=== PATIENT | female | born 1960 | race Caucasian/White ===

== ENCOUNTER 2021-04-22 01:52 | Inpatient (IN) | payer OTHER ==
[2021-04-22 02:05] VITALS: BMI 20.1
[2021-04-22] MEDS ORDERED: ACETAMINOPHEN 1000 MG/100 ML VIAL (NON FORMULARY) IVPB ONE (02:49)
[2021-04-22] MEDS ORDERED: ACETAMINOPHEN INJECTION 100 ML IVPB ONE (02:51)
[2021-04-22 02:55] LABS: BASO % 1.2 % (0-2.0); EOS % 2.8 % (0-4.5); HEMATOCRIT 39.9 % (32.4-45.2); HEMOGLOBIN 14.1 GM/dL (10.7-15.3); LYMPH % 41.6 % (8-40); MCH 35.3 pg (25.7-33.7); MCHC 35.3 g/dl (32.0-36.0); MEAN CELL VOLUME 100.3 fl (80-96); MEAN PLT VOLUME 6.8 fl (7.5-11.1); MONO % 7.1 % (3.8-10.2); NEUT % 47.3 % (42.8-82.8); PLATELET COUNT 282 K/MM3 (134-434); RBC 3.98 M/mm3 (3.60-5.2); WHITE BLOOD COUNT 7.6 K/mm3 (4.0-10.0)
[2021-04-22] MEDS ORDERED: LORazepam 2 MG/ML SDV VIAL IVPUSH ONE (02:55)
[2021-04-22] MEDS ORDERED: ONDANSETRON 4 MG/2 ML VIAL IVPUSH ONE (02:55)
[2021-04-22 03:03] LABS: INR 1.05 (0.83-1.09); PROTHROMBIN TIME (PATIENT) 12.9 SEC (9.7-13.0)
[2021-04-22 03:06] LABS: ACTIVATED PTT 27.6 SECONDS (25.2-36.5)
[2021-04-22 03:16] LABS: CHLORIDE 105 mmol/L (98-107); SODIUM 141 mmol/L (136-145)
[2021-04-22 03:18] LABS: CALCIUM 9.7 mg/dL (8.5-10.1)
[2021-04-22] MEDS ORDERED: LORazepam 2 MG/ML SDV VIAL ONE (03:18)
[2021-04-22] MEDS ORDERED: ONDANSETRON 4 MG/2 ML VIAL ONE (03:18)
[2021-04-22 03:19] LABS: ALBUMIN 3.6 g/dl (3.4-5.0); ANION GAP 11 MMOL/L (8-16); BLOOD UREA NITROGEN 8.1 mg/dL (7-18); CO2 25 mmol/L (21-32); GLUCOSE,RANDOM 85 mg/dL (74-106); LIPASE 66 U/L (73-393)
[2021-04-22] MEDS ORDERED: POTASSIUM CHLORIDE TABS 20 MEQ TABLET.ER (FP) PO ONE (03:19)
[2021-04-22 03:22] LABS: CREATININE 0.5 mg/dL (0.55-1.3); SGOT/AST 13 U/L (15-37); SGPT/ALT 15 U/L (13-61)
[2021-04-22 03:23] LABS: BILIRUBIN,TOTAL 0.5 mg/dL (0.2-1); TOT PROT 6.2 g/dl (6.4-8.2)
[2021-04-22 03:24] LABS: ALK PHOS 65 U/L (45-117)
[2021-04-22] MEDS ORDERED: POTASSIUM CHLORIDE ORAL LIQUID 20 MEQ/15 ML ONE (04:24)
[2021-04-22] MEDS ORDERED: AZITHROMYCIN 250 MG TABLET PO ONE (04:44)
[2021-04-22] MEDS ORDERED: PIPERACILLIN/TAZOB 4.5 GM 4.5 GM in DEXTROSE 5%-WATER 100 ML IVPB ONE (04:47)
[2021-04-22] MEDS ORDERED: PIPERACILLIN/TAZOB 4.5 GM 4.5 GM/100 ML BAG IVPB ONE (05:06)
[2021-04-22] MEDS ORDERED: SODIUM CHLORIDE 1,000 ML IV SCH (09:45)
[2021-04-22] MEDS ORDERED: ACETAMINOPHEN 325 MG TABLET (FP) PO PRN (09:45)
[2021-04-22] MEDS ORDERED: ONDANSETRON 4 MG/2 ML VIAL IVPUSH PRN ×2 (10:00→20:29)
[2021-04-22] MEDS ORDERED: ENOXAPARIN NA (PORCINE) 60 MG/0.6 ML DISP.SYRIN SQ SCH (10:00)
[2021-04-22] MEDS ORDERED: VANCOMYCIN 1 GM in D5W (PRE-DOCKED) 1,000 MG/250 ML IVPB SCH ×2 (11:00→22:00)
[2021-04-22] MEDS ORDERED: PIPERACILLIN/TAZOB 3.375 GM 3.375 GM in DEXTROSE 5%-WATER - 50 ML IVPB SCH ×2 (11:00→18:00)
[2021-04-22] MEDS ORDERED: MELATONIN 5 MG TABLETS PO PRN (11:01)
[2021-04-22] MEDS ORDERED: PIPERACILLIN/TAZOBACTAM 3.375 GM VIAL IVPB ONE ×2 (11:34→17:28)
[2021-04-22] MEDS ORDERED: DEXTROSE 5%-WATER - 50 ML IVPB ONE ×2 (11:34→17:28)
[2021-04-22] MEDS ORDERED: CEFTRIAXONE 1 GM in DEXTROSE 5%-WATER - 50 ML IVPB ONE (14:00)
[2021-04-22] MEDS ORDERED: ALPRAZolam 0.25 MG TABLET PO PRN ×2 (16:47→20:29)
[2021-04-22] MEDS ORDERED: PT OWN MED DRAWER 7, Y5N ONE ×2 (17:45→21:48)
[2021-04-22 18:20] LABS: PH,URINE 6.5 (5.0-8.0); URINE APPEARANCE CLEAR; URINE BILIRUBIN NEGATIVE (NEGATIVE); URINE COLOR YELLOW; URINE GLUCOSE (UA) TRACE (NEGATIVE); URINE KETONE 1+ (NEGATIVE); URINE LEUK ESTERASE NEGATIVE (NEGATIVE); URINE NITRITE NEGATIVE (NEGATIVE); URINE PROTEIN NEGATIVE (NEGATIVE); URINE UROBILINOGEN 0.2 mg/dL (0.2-1.0)
[2021-04-22] MEDS: ACETAMINOPHEN 325 MG TABLET (FP) PO PRN (21:27)
[2021-04-22] MEDS: MELATONIN 5 MG TABLETS PO PRN (21:29)
[2021-04-22] MEDS: SODIUM CHLORIDE 1,000 ML IV SCH (21:30)
[2021-04-22] MEDS: ENOXAPARIN NA (PORCINE) 60 MG/0.6 ML DISP.SYRIN SQ SCH (21:34)
[2021-04-23] MEDS ORDERED: PIPERACILLIN/TAZOBACTAM 3.375 GM VIAL IVPB ONE ×3 (00:13→17:20)
[2021-04-23] MEDS ORDERED: DEXTROSE 5%-WATER - 50 ML IVPB ONE ×3 (00:14→17:20)
[2021-04-23] MEDS: PIPERACILLIN/TAZOB 3.375 GM 3.375 GM in DEXTROSE 5%-WATER - 50 ML IVPB SCH ×3 (01:06→17:22)
[2021-04-23] MEDS ORDERED: ALPRAZolam 1 MG TABLET PO ONE (02:52)
[2021-04-23] MEDS ORDERED: LORazepam 0.5 MG TABLET PO ONE (03:15)
[2021-04-23] MEDS: ALPRAZolam 0.25 MG TABLET PO PRN ×2 (03:19→13:23)
[2021-04-23 07:21] LABS: HEMATOCRIT 33.6 % (32.4-45.2); MCHC 35.7 g/dl (32.0-36.0); MEAN CELL VOLUME 100.9 fl (80-96); PLATELET COUNT 231 K/MM3 (134-434); RBC 3.33 M/mm3 (3.60-5.2); RDW 13.4 % (11.6-15.6); WHITE BLOOD COUNT 6.8 K/mm3 (4.0-10.0)
[2021-04-23 07:50] LABS: BLOOD UREA NITROGEN 8.7 mg/dL (7-18)
[2021-04-23 07:51] LABS: CALCIUM 9.1 mg/dL (8.5-10.1)
[2021-04-23 07:54] LABS: PHOSPHOROUS 3.2 mg/dL (2.5-4.9)
[2021-04-23 07:55] LABS: CREATININE 0.4 mg/dL (0.55-1.3)
[2021-04-23 07:56] LABS: BILIRUBIN,TOTAL 0.4 mg/dL (0.2-1); TOT PROT 5.1 g/dl (6.4-8.2)
[2021-04-23 08:01] LABS: ALBUMIN 2.8 g/dl (3.4-5.0)
[2021-04-23] MEDS: ENOXAPARIN NA (PORCINE) 60 MG/0.6 ML DISP.SYRIN SQ SCH ×2 (09:53→22:30)
[2021-04-23] MEDS ORDERED: AZITHROMYCIN IVPB 250 MG in DEXTROSE 5%-WATER - 250 ML IVPB SCH (10:00)
[2021-04-23] MEDS ORDERED: ACETAMINOPHEN 1000 MG/100 ML VIAL (NON FORMULARY) IVPB PRN ×2 (11:45→11:58)
[2021-04-23] MEDS: HYDROmorphone HCL 2 MG TABLET PO PRN ×2 (12:13→19:44)
[2021-04-23] MEDS: MELATONIN 5 MG TABLETS PO PRN (22:32)
[2021-04-23] MEDS: SODIUM CHLORIDE 1,000 ML IV SCH (22:36)
[2021-04-24] MEDS: ACETAMINOPHEN 325 MG TABLET (FP) PO PRN (00:51)
[2021-04-24] MEDS ORDERED: PIPERACILLIN/TAZOBACTAM 3.375 GM VIAL IVPB ONE ×3 (01:19→18:00)
[2021-04-24] MEDS ORDERED: DEXTROSE 5%-WATER - 50 ML IVPB ONE ×3 (01:19→18:00)
[2021-04-24] MEDS: ALPRAZolam 0.25 MG TABLET PO PRN ×2 (01:26→13:14)
[2021-04-24] MEDS: PIPERACILLIN/TAZOB 3.375 GM 3.375 GM in DEXTROSE 5%-WATER - 50 ML IVPB SCH ×3 (01:26→18:08)
[2021-04-24 07:15] LABS: EOS % 4.7 % (0-4.5); HEMATOCRIT 32.2 % (32.4-45.2); HEMOGLOBIN 11.5 GM/dL (10.7-15.3); LYMPH % 39.7 % (8-40); MCH 35.5 pg (25.7-33.7); MCHC 35.6 g/dl (32.0-36.0); MEAN CELL VOLUME 99.8 fl (80-96); MONO % 6.6 % (3.8-10.2); PLATELET COUNT 211 K/MM3 (134-434); RBC 3.23 M/mm3 (3.60-5.2); RDW 13.1 % (11.6-15.6)
[2021-04-24 07:25] LABS: ALBUMIN 2.8 g/dl (3.4-5.0); MAGNESIUM 1.8 mg/dL (1.8-2.4)
[2021-04-24 07:27] LABS: CREATININE 0.4 mg/dL (0.55-1.3)
[2021-04-24 07:36] LABS: BILIRUBIN,TOTAL 0.3 mg/dL (0.2-1); BLOOD UREA NITROGEN 7.1 mg/dL (7-18)
[2021-04-24] MEDS: ENOXAPARIN NA (PORCINE) 60 MG/0.6 ML DISP.SYRIN SQ SCH ×2 (09:13→22:30)
[2021-04-24] MEDS: HYDROmorphone HCL 2 MG TABLET PO PRN ×2 (09:13→20:50)
[2021-04-24] MEDS: POTASSIUM CHLORIDE TABS 20 MEQ TABLET.ER (FP) PO SCH (09:13)
[2021-04-24] MEDS ORDERED: HYDROmorphone HCL 2 MG TABLET PO PRN (10:06)
[2021-04-24] MEDS ORDERED: SENNOSIDES 8.6MG TABLET (FP) PO PRN (10:14)
[2021-04-24] MEDS ORDERED: HYDROmorphone HCL 2 MG TABLET PO ONE (10:45)
[2021-04-24] MEDS: SODIUM CHLORIDE 1,000 ML IV SCH (20:58)
[2021-04-24] MEDS: DOCUSATE SODIUM 100 MG CAPSULE (FP) PO SCH (21:07)
[2021-04-24] MEDS ORDERED: LORazepam 0.5 MG TABLET PO ONE ×2 (21:21→22:51)
[2021-04-24] MEDS ORDERED: risperiDONE 1 MG TABLET PO SCH (22:00)
[2021-04-24] MEDS: MELATONIN 5 MG TABLETS PO PRN (22:26)
[2021-04-25] MEDS ORDERED: PIPERACILLIN/TAZOBACTAM 3.375 GM VIAL IVPB ONE ×3 (00:41→17:51)
[2021-04-25] MEDS ORDERED: DEXTROSE 5%-WATER - 50 ML IVPB ONE ×3 (00:41→17:51)
[2021-04-25] MEDS: PIPERACILLIN/TAZOB 3.375 GM 3.375 GM in DEXTROSE 5%-WATER - 50 ML IVPB SCH ×3 (02:01→18:37)
[2021-04-25 07:50] LABS: CHLORIDE 116 mmol/L (98-107); SODIUM 145 mmol/L (136-145)
[2021-04-25 07:53] LABS: ALBUMIN 2.6 g/dl (3.4-5.0); ANION GAP 6 MMOL/L (8-16); BLOOD UREA NITROGEN 5.4 mg/dL (7-18); CO2 23 mmol/L (21-32); GLUCOSE,RANDOM 74 mg/dL (74-106); MAGNESIUM 1.7 mg/dL (1.8-2.4)
[2021-04-25 07:56] LABS: CREATININE 0.2 mg/dL (0.55-1.3); SGOT/AST 19 U/L (15-37); SGPT/ALT 11 U/L (13-61)
[2021-04-25 07:57] LABS: BILIRUBIN,TOTAL 0.4 mg/dL (0.2-1); TOT PROT 4.9 g/dl (6.4-8.2)
[2021-04-25 07:59] LABS: ALK PHOS 44 U/L (45-117)
[2021-04-25] MEDS: DOCUSATE SODIUM 100 MG CAPSULE (FP) PO SCH ×2 (09:21→21:37)
[2021-04-25] MEDS: ENOXAPARIN NA (PORCINE) 60 MG/0.6 ML DISP.SYRIN SQ SCH ×2 (09:21→21:37)
[2021-04-25] MEDS: POTASSIUM CHLORIDE TABS 20 MEQ TABLET.ER (FP) PO SCH (09:21)
[2021-04-25] MEDS: HYDROmorphone HCL 2 MG TABLET PO PRN ×2 (09:25→18:36)
[2021-04-25] MEDS: SODIUM CHLORIDE 1,000 ML IV SCH ×2 (09:25→18:48)
[2021-04-25] MEDS: LORazepam 1 MG TABLET PO PRN ×2 (11:28→22:04)
[2021-04-25] MEDS ORDERED: HYDROmorphone HCL 2 MG TABLET PO PRN (13:40)
[2021-04-25] MEDS ORDERED: ONDANSETRON 4 MG/2 ML VIAL IVPUSH PRN (13:40)
[2021-04-25] MEDS ORDERED: MELATONIN 5 MG TABLETS PO PRN (13:40)
[2021-04-25] MEDS ORDERED: ACETAMINOPHEN 325 MG TABLET (FP) PO PRN (13:40)
[2021-04-25] MEDS ORDERED: SENNOSIDES 8.6MG TABLET (FP) PO PRN (13:40)
[2021-04-25] MEDS ORDERED: PIPERACILLIN/TAZOB 3.375 GM 3.375 GM in DEXTROSE 5%-WATER - 50 ML IVPB SCH (18:00)
[2021-04-25] MEDS ORDERED: risperiDONE 1 MG TABLET PO SCH (22:00)
[2021-04-25] MEDS: guaiFENesin/D-METHORPHAN TAB.ER.12H PO SCH (22:33)
[2021-04-25] MEDS ORDERED: PT OWN MED DRAWER 7, Y5N ONE (23:02)
[2021-04-26] MEDS ORDERED: DEXTROSE 5%-WATER - 50 ML IVPB ONE ×2 (01:27→09:20)
[2021-04-26] MEDS ORDERED: PIPERACILLIN/TAZOBACTAM 3.375 GM VIAL IVPB ONE ×3 (01:27→09:20)
[2021-04-26] MEDS: PIPERACILLIN/TAZOB 3.375 GM 3.375 GM in DEXTROSE 5%-WATER - 50 ML IVPB SCH ×2 (01:33→09:22)
[2021-04-26] MEDS: HYDROmorphone HCL 2 MG TABLET PO PRN ×3 (02:10→16:33)
[2021-04-26] MEDS ORDERED: PT OWN MED DRAWER 7, Y5N ONE ×2 (09:19→21:13)
[2021-04-26] MEDS: ENOXAPARIN NA (PORCINE) 60 MG/0.6 ML DISP.SYRIN SQ SCH ×2 (09:21→22:01)
[2021-04-26] MEDS: DOCUSATE SODIUM 100 MG CAPSULE (FP) PO SCH ×2 (09:22→22:02)
[2021-04-26] MEDS: guaiFENesin/D-METHORPHAN TAB.ER.12H PO SCH ×2 (09:22→22:02)
[2021-04-26] MEDS: POTASSIUM CHLORIDE TABS 20 MEQ TABLET.ER (FP) PO SCH (09:22)
[2021-04-26 09:52] LABS: BASO % 1.3 % (0-2.0); EOS % 5.3 % (0-4.5); HEMATOCRIT 34.1 % (32.4-45.2); HEMOGLOBIN 11.6 GM/dL (10.7-15.3); LYMPH % 38.3 % (8-40); MCH 34.6 pg (25.7-33.7); MCHC 34.1 g/dl (32.0-36.0); MEAN CELL VOLUME 101.4 fl (80-96); MEAN PLT VOLUME 7.3 fl (7.5-11.1); MONO % 6.7 % (3.8-10.2); NEUT % 48.4 % (42.8-82.8); PLATELET COUNT 235 K/MM3 (134-434); RBC 3.37 M/mm3 (3.60-5.2); RDW 13.4 % (11.6-15.6); WHITE BLOOD COUNT 5.6 K/mm3 (4.0-10.0)
[2021-04-26 10:26] LABS: CALCIUM 8.5 mg/dL (8.5-10.1)
[2021-04-26 10:27] LABS: ALBUMIN 2.7 g/dl (3.4-5.0); BLOOD UREA NITROGEN 7.8 mg/dL (7-18)
[2021-04-26 10:30] LABS: CREATININE 0.4 mg/dL (0.55-1.3)
[2021-04-26 10:31] LABS: BILIRUBIN,TOTAL 0.3 mg/dL (0.2-1)
[2021-04-26 10:34] LABS: TOT PROT 5.1 g/dl (6.4-8.2)
[2021-04-26] MEDS: ALPRAZolam 0.25 MG TABLET PO PRN ×2 (11:45→22:01)
[2021-04-26] MEDS: SODIUM CHLORIDE 1,000 ML IV SCH (14:11)
[2021-04-26] MEDS: AMOX TR/POT CLAV 875MG/125MG TABLETS (FP) PO SCH (17:01)
[2021-04-26] MEDS: MELATONIN 5 MG TABLETS PO SCH (22:01)
[2021-04-27] MEDS: AMOX TR/POT CLAV 875MG/125MG TABLETS (FP) PO SCH ×2 (08:06→17:32)
[2021-04-27] MEDS: HYDROmorphone HCL 2 MG TABLET PO PRN ×3 (08:33→22:04)
[2021-04-27] MEDS: POTASSIUM CHLORIDE TABS 20 MEQ TABLET.ER (FP) PO SCH (09:05)
[2021-04-27] MEDS: ENOXAPARIN NA (PORCINE) 60 MG/0.6 ML DISP.SYRIN SQ SCH ×2 (09:05→22:03)
[2021-04-27] MEDS: DOCUSATE SODIUM 100 MG CAPSULE (FP) PO SCH ×2 (09:05→22:02)
[2021-04-27] MEDS: guaiFENesin/D-METHORPHAN TAB.ER.12H PO SCH ×2 (09:06→22:04)
[2021-04-27 10:19] LABS: EOS % 4.3 % (0-4.5); HEMATOCRIT 39.3 % (32.4-45.2); HEMOGLOBIN 13.1 GM/dL (10.7-15.3); LYMPH % 26.2 % (8-40); MCH 33.9 pg (25.7-33.7); MCHC 33.4 g/dl (32.0-36.0); MEAN CELL VOLUME 101.6 fl (80-96); MEAN PLT VOLUME 7.2 fl (7.5-11.1); NEUT % 61.5 % (42.8-82.8); PLATELET COUNT 278 K/MM3 (134-434); RBC 3.87 M/mm3 (3.60-5.2); RDW 13.8 % (11.6-15.6); WHITE BLOOD COUNT 7.3 K/mm3 (4.0-10.0)
[2021-04-27 10:38] LABS: BLOOD UREA NITROGEN 10.9 mg/dL (7-18); MAGNESIUM 2.5 mg/dL (1.8-2.4)
[2021-04-27 10:42] LABS: CREATININE 0.4 mg/dL (0.55-1.3)
[2021-04-27 10:43] LABS: BILIRUBIN,TOTAL 0.4 mg/dL (0.2-1); TOT PROT 6.3 g/dl (6.4-8.2)
[2021-04-27 10:45] LABS: ALBUMIN 3.5 g/dl (3.4-5.0); CALCIUM 10.5 mg/dL (8.5-10.1)
[2021-04-27] MEDS: ALPRAZolam 0.25 MG TABLET PO PRN ×2 (11:14→22:02)
[2021-04-27] MEDS ORDERED: PT OWN MED DRAWER 7, Y5N ONE (21:58)
[2021-04-27] MEDS: MELATONIN 5 MG TABLETS PO SCH (22:04)
[2021-04-27] MEDS ORDERED: diphenhydrAMINE HCL 25 MG CAPSULE (FP) PO ONE (23:48)
[2021-04-28] MEDS: AMOX TR/POT CLAV 875MG/125MG TABLETS (FP) PO SCH ×2 (08:33→16:38)
[2021-04-28 08:51] LABS: BASO % 1.1 % (0-2.0); EOS % 5.4 % (0-4.5); LYMPH % 31.2 % (8-40); MCH 33.9 pg (25.7-33.7); MCHC 33.3 g/dl (32.0-36.0); MEAN CELL VOLUME 101.9 fl (80-96); MEAN PLT VOLUME 7.2 fl (7.5-11.1); MONO % 7.5 % (3.8-10.2); NEUT % 54.8 % (42.8-82.8); PLATELET COUNT 307 K/MM3 (134-434); RBC 4.12 M/mm3 (3.60-5.2); RDW 13.7 % (11.6-15.6); WHITE BLOOD COUNT 8.3 K/mm3 (4.0-10.0)
[2021-04-28] MEDS: HYDROmorphone HCL 2 MG TABLET PO PRN ×3 (08:51→22:14)
[2021-04-28 09:14] LABS: ALBUMIN 3.6 g/dl (3.4-5.0); BLOOD UREA NITROGEN 16.9 mg/dL (7-18); CALCIUM 10.6 mg/dL (8.5-10.1); MAGNESIUM 2.5 mg/dL (1.8-2.4)
[2021-04-28 09:17] LABS: CREATININE 0.3 mg/dL (0.55-1.3)
[2021-04-28 09:19] LABS: BILIRUBIN,TOTAL 0.4 mg/dL (0.2-1); TOT PROT 6.6 g/dl (6.4-8.2)
[2021-04-28] MEDS ORDERED: PT OWN MED DRAWER 7, Y5N ONE ×3 (09:58→21:33)
[2021-04-28] MEDS: POTASSIUM CHLORIDE TABS 20 MEQ TABLET.ER (FP) PO SCH (10:24)
[2021-04-28] MEDS: ENOXAPARIN NA (PORCINE) 60 MG/0.6 ML DISP.SYRIN SQ SCH ×2 (10:24→21:41)
[2021-04-28] MEDS: DOCUSATE SODIUM 100 MG CAPSULE (FP) PO SCH ×2 (10:24→21:40)
[2021-04-28] MEDS: guaiFENesin/D-METHORPHAN TAB.ER.12H PO SCH ×2 (10:25→21:40)
[2021-04-28] MEDS: ALPRAZolam 0.25 MG TABLET PO PRN ×2 (10:26→21:40)
[2021-04-28] MEDS: MELATONIN 5 MG TABLETS PO SCH (21:40)
[2021-04-29 08:19] LABS: BASO % 0.9 % (0-2.0); HEMATOCRIT 39.8 % (32.4-45.2); HEMOGLOBIN 13.5 GM/dL (10.7-15.3); LYMPH % 31.7 % (8-40); MCH 34.3 pg (25.7-33.7); MCHC 33.9 g/dl (32.0-36.0); MEAN CELL VOLUME 101.4 fl (80-96); MEAN PLT VOLUME 7.1 fl (7.5-11.1); MONO % 8.4 % (3.8-10.2); PLATELET COUNT 302 10^3/uL (134-434); RBC 3.93 M/mm3 (3.60-5.2); RDW 13.7 % (11.6-15.6); WHITE BLOOD COUNT 7.9 K/mm3 (4.0-10.0)
[2021-04-29] MEDS: AMOX TR/POT CLAV 875MG/125MG TABLETS (FP) PO SCH ×2 (08:40→18:23)
[2021-04-29 08:51] LABS: BLOOD UREA NITROGEN 17.1 mg/dL (7-18); CALCIUM 10.7 mg/dL (8.5-10.1)
[2021-04-29 08:52] LABS: ALBUMIN 3.6 g/dl (3.4-5.0); MAGNESIUM 2.5 mg/dL (1.8-2.4)
[2021-04-29 08:55] LABS: CREATININE 0.5 mg/dL (0.55-1.3)
[2021-04-29 08:56] LABS: BILIRUBIN,TOTAL 0.4 mg/dL (0.2-1)
[2021-04-29 08:57] LABS: TOT PROT 6.6 g/dl (6.4-8.2)
[2021-04-29] MEDS ORDERED: PT OWN MED DRAWER 7, Y5N ONE ×2 (09:20→22:41)
[2021-04-29] MEDS: HYDROmorphone HCL 2 MG TABLET PO PRN ×3 (09:36→22:44)
[2021-04-29] MEDS: DOCUSATE SODIUM 100 MG CAPSULE (FP) PO SCH ×2 (09:36→22:43)
[2021-04-29] MEDS: guaiFENesin/D-METHORPHAN TAB.ER.12H PO SCH ×2 (09:37→22:44)
[2021-04-29] MEDS: ENOXAPARIN NA (PORCINE) 60 MG/0.6 ML DISP.SYRIN SQ SCH (09:38)
[2021-04-29] MEDS: POTASSIUM CHLORIDE TABS 20 MEQ TABLET.ER (FP) PO SCH (09:38)
[2021-04-29] MEDS: ALPRAZolam 0.25 MG TABLET PO PRN ×2 (09:41→22:43)
[2021-04-29] MEDS ORDERED: APIXABAN 5 MG TABLET PO SCH (10:00)
[2021-04-29] MEDS ORDERED: MAGNESIUM CITRATE 300 ML BOTTLE PO PRN (13:28)
[2021-04-29] MEDS: POLYETHYLENE GLYCOL 3350 119 GM BTL PO SCH ×2 (14:37→22:45)
[2021-04-29] MEDS: MELATONIN 5 MG TABLETS PO SCH (22:43)
[2021-04-29] MEDS: APIXABAN 5 MG TABLET PO SCH (22:43)
[2021-04-30 04:38] VITALS: TEMP 98.4
[2021-04-30] MEDS: AMOX TR/POT CLAV 875MG/125MG TABLETS (FP) PO SCH (08:15)
[2021-04-30] MEDS: HYDROmorphone HCL 2 MG TABLET PO PRN (08:18)
[2021-04-30 08:41] LABS: EOS % 4.7 % (0-4.5); HEMATOCRIT 38.5 % (32.4-45.2); HEMOGLOBIN 13.3 GM/dL (10.7-15.3); LYMPH % 30.3 % (8-40); MCH 34.8 pg (25.7-33.7); MCHC 34.5 g/dl (32.0-36.0); MEAN CELL VOLUME 100.7 fl (80-96); MEAN PLT VOLUME 6.8 fl (7.5-11.1); MONO % 8.9 % (3.8-10.2); NEUT % 55.1 % (42.8-82.8); PLATELET COUNT 291 10^3/uL (134-434); RBC 3.82 M/mm3 (3.60-5.2); RDW 13.5 % (11.6-15.6); WHITE BLOOD COUNT 8.3 K/mm3 (4.0-10.0)
[2021-04-30 09:06] LABS: ALBUMIN 3.5 g/dl (3.4-5.0); CALCIUM 10.5 mg/dL (8.5-10.1)
[2021-04-30 09:07] LABS: BLOOD UREA NITROGEN 16.6 mg/dL (7-18); MAGNESIUM 2.6 mg/dL (1.8-2.4)
[2021-04-30 09:10] LABS: CREATININE 0.5 mg/dL (0.55-1.3)
[2021-04-30 09:11] LABS: BILIRUBIN,TOTAL 0.4 mg/dL (0.2-1); TOT PROT 6.4 g/dl (6.4-8.2)
[2021-04-30] MEDS ORDERED: PT OWN MED DRAWER 7, Y5N ONE (09:26)
[2021-04-30] MEDS: DOCUSATE SODIUM 100 MG CAPSULE (FP) PO SCH (09:35)
[2021-04-30] MEDS: APIXABAN 5 MG TABLET PO SCH (09:35)
[2021-04-30] MEDS: ALPRAZolam 0.25 MG TABLET PO PRN (09:35)
[2021-04-30] MEDS: POTASSIUM CHLORIDE TABS 20 MEQ TABLET.ER (FP) PO SCH (09:35)
[2021-04-30] MEDS: guaiFENesin/D-METHORPHAN TAB.ER.12H PO SCH ×2 (09:36→09:44)
[2021-04-30] MEDS: POLYETHYLENE GLYCOL 3350 119 GM BTL PO SCH (09:36)
[2021-04-30 11:05] VITALS: BP 122/77; PULSE 79
== END 2021-04-30 11:20 | disposition home or self-care (01) | DRG 175 ==
LOC: JER 01:52 → JERBED 04:50 → J7W 09:48 → J4W 16:46 → J6S 04-25 13:13
PROVIDERS: ADMIT Internal Medicine; ATTEND Nurse Practitioner Acute Care
DX: I26.99 Other pulmonary embolism without acute cor pulmonale (principal); J18.9 Pneumonia, unspecified organism; J98.11 Atelectasis; I48.0 Paroxysmal atrial fibrillation; R00.2 Palpitations; J47.9 Bronchiectasis, uncomplicated; R63.4 Abnormal weight loss; Z68.20 Body mass index [BMI] 20.0-20.9, adult; R91.1 Solitary pulmonary nodule; I89.0 Lymphedema, not elsewhere classified; F25.9 Schizoaffective disorder, unspecified; M25.511 Pain in right shoulder; F31.9 Bipolar disorder, unspecified; H92.01 Otalgia, right ear; F43.10 Post-traumatic stress disorder, unspecified; F41.9 Anxiety disorder, unspecified; F22 Delusional disorders; Z85.3 Personal history of malignant neoplasm of breast
CPT/HCPCS: 36415; 70450-TC; 70551-TC; 71275-TC; 72125-TC; 72128-TC; 72131-TC; 73200-TC-RT; 73700-TC-RT; 74177-TC; 76830-TC; 76856-TC; 80053; 81003; 82550; 83605; 83690; 83735; 84100; 84443; 84484; 85025; 85027; 85379; 85610; 85651; 85730; 86140; 86300; 86850; 86900; 86901; 87040; 87086; 87807; 87899; 93005; 93010; 93306-TC; 93970-TC; 97116-GP; 99285-25; C9803; J0131; U0003; U0005

== ENCOUNTER 2024-11-25 15:19 | Inpatient (IN) | payer OTHER ==
[2024-11-25] MEDS: SODIUM CHLORIDE 0.9% 1000 ML INFUS.BAG IV ONE (16:40)
[2024-11-25 16:46] LABS: HEMATOCRIT 33.7 % (32.4-45.2); HEMOGLOBIN 11.2 G/dL (10.7-15.3); MCH 32.5 pg (25.7-33.7); MCHC 33.2 g/dl (32.0-36.0); MEAN CELL VOLUME 98.1 fl (80-96); MEAN PLT VOLUME 6.5 fl (7.5-11.1); PLATELET COUNT 597.4 10^3/uL (134-434); RBC 3.44 10^6/uL (3.60-5.2); RDW 13.4 % (11.6-15.6); WHITE BLOOD COUNT 15.4 10^3/uL (4.0-10.8)
[2024-11-25] MEDS ORDERED: ONDANSETRON 4 MG/2 ML VIAL ONE (16:56)
[2024-11-25] MEDS ORDERED: AZITHROMYCIN 500 MG VIAL IVPB ONE (16:56)
[2024-11-25] MEDS ORDERED: FAMOTIDINE 20 MG/50 ML IVPB 20 MG/50 ML MG IVPB ONE (16:56)
[2024-11-25] MEDS ORDERED: ACETAMINOPHEN INJECTION 100 ML ONE (16:56)
[2024-11-25] MEDS ORDERED: cefTRIAXone SODIUM 1 GM VIAL ONE ×2 (16:56)
[2024-11-25 16:59] LABS: INR 1.28 (0.83-1.09); PROTHROMBIN TIME (PATIENT) 14.5 SEC (9.7-13.0)
[2024-11-25 17:01] LABS: ACTIVATED PTT 29.2 SECONDS (25.2-36.5)
[2024-11-25 17:05] LABS: ALBUMIN 2.8 g/dl (3.4-5.0); BILIRUBIN,TOTAL 0.7 mg/dl (0.2-1); CALCIUM 9.6 mg/dl (8.5-10.1); CREATININE 0.4 mg/dl (0.6-1.3); MAGNESIUM 2.1 mg/dL (1.8-2.4); POTASSIUM 3.9 mmol/L (3.5-5.1); TOT PROT 6.1 g/dl (6.4-8.2)
[2024-11-25] MEDS: ACETAMINOPHEN 1000 MG/100 ML BAG IVPB ONE (17:06)
[2024-11-25] MEDS: AZITHROMYCIN IVPB 500 MG in DEXTROSE 5%-WATER - 250 ML IVPB ONE (17:07)
[2024-11-25] MEDS: ONDANSETRON 4 MG/2 ML VIAL IVPUSH ONE (17:07)
[2024-11-25] MEDS: FAMOTIDINE 20 MG/50 ML IVPB 20 MG/50 ML MG IVPB ONE (17:07)
[2024-11-25] MEDS: CEFTRIAXONE 1 GM in DEXTROSE 5%-WATER - 100 ML IVPB ONE (17:07)
[2024-11-25 17:22] LABS: VENOUS O2 SATURATION 61.7 % (70-80); VENOUS PCO2 43.2 mmHg (38-52); VENOUS PH 7.426 (7.310-7.410)
[2024-11-25 17:36] LABS: PLATELET ESTIMATE INCREASED
[2024-11-25 18:18] LABS: HIV INTERPRETATION NEGATIVE (NEGATIVE)
[2024-11-25 22:04] VITALS: BMI 15.7
[2024-11-25] MEDS: SODIUM CHLORIDE 1,000 ML IV SCH (22:15)
[2024-11-25] MEDS: MELATONIN 5 MG TABLETS PO ONE (23:49)
[2024-11-26 09:50] LABS: CALCIUM 8.6 mg/dl (8.5-10.1); CREATININE 0.5 mg/dl (0.6-1.3)
[2024-11-26 09:58] LABS: HEMATOCRIT 29.8 % (32.4-45.2); HEMOGLOBIN 9.6 GM/dL (10.7-15.3); MCH 31.5 pg (25.7-33.7); MCHC 32.4 g/dl (32.0-36.0); MEAN CELL VOLUME 97.2 fl (80-96); MEAN PLT VOLUME 6.1 fl (7.5-11.1); PLATELET COUNT 593 10^3/uL (134-434); RBC 3.06 M/mm3 (3.60-5.2); RDW 14.1 % (11.6-15.6); WHITE BLOOD COUNT 13.5 K/mm3 (4.0-10.0)
[2024-11-26] MEDS: ALBUTEROL SO4 2.5/IPRATROPIUM 0.5 INH SOL 3 ML VIAL.NEB. NEB SCH (10:07)
[2024-11-26] MEDS: CEFTRIAXONE 1 GM in DEXTROSE 5%-WATER - 50 ML IVPB SCH (10:09)
[2024-11-26 10:12] LABS: CALCIUM OXALATE CRYSTALS FEW /hpf (NONE SEEN)
[2024-11-26] MEDS: ENOXAPARIN NA (PORCINE) 40 MG/0.4 ML DISP.SYRIN SQ SCH (10:13)
[2024-11-26] MEDS: AZITHROMYCIN IVPB 500 MG/250 ML BAG IVPB SCH (10:13)
[2024-11-26] MEDS: LACTOBACILLUS ACIDOPHILUS 1 TABLET PO SCH (10:14)
[2024-11-26] MEDS: methylPREDNISolone NA SUCC 40 MG/1 ML VIAL IVPUSH SCH (14:06)
[2024-11-26] MEDS: ROSUVASTATIN CA 10 MG TABLET PO SCH (21:36)
[2024-11-26] MEDS: MELATONIN 5 MG TABLETS PO SCH (21:36)
[2024-11-27] MEDS: SODIUM CHLORIDE 1,000 ML IV SCH (07:47)
[2024-11-27 08:23] LABS: ALBUMIN 2.3 g/dl (3.4-5.0); BILIRUBIN,TOTAL 0.4 mg/dl (0.2-1); CALCIUM 8.7 mg/dl (8.5-10.1); CREATININE 0.3 mg/dl (0.6-1.3); MAGNESIUM 1.9 mg/dL (1.8-2.4); PHOSPHOROUS 2.6 (2.5-4.9); POTASSIUM 4.5 mmol/L (3.5-5.1); TOT PROT 5.2 g/dl (6.4-8.2)
[2024-11-27 09:27] LABS: BASO % 0.2 % (0-2.0); HEMATOCRIT 25.6 % (32.4-45.2); HEMOGLOBIN 8.7 GM/dL (10.7-15.3); LYMPH % 12.3 % (8-40); MCH 32.5 pg (25.7-33.7); MCHC 33.8 g/dl (32.0-36.0); MEAN CELL VOLUME 96.1 fl (80-96); MEAN PLT VOLUME 5.9 fl (7.5-11.1); MONO % 4.1 % (3.8-10.2); NEUT % 83.4 % (42.8-82.8); PLATELET COUNT 535 10^3/uL (134-434); RBC 2.66 M/mm3 (3.60-5.2); RDW 14.1 % (11.6-15.6); WHITE BLOOD COUNT 11.1 K/mm3 (4.0-10.0)
[2024-11-27] MEDS: PANTOPRAZOLE 40 MG TABLET PO SCH (10:28)
[2024-11-27] MEDS: TAMSULOSIN HCL 0.4 MG CAP PO SCH (18:55)
[2024-11-28 08:42] LABS: CREATININE 0.4 mg/dl (0.6-1.3); POTASSIUM 4.5 mmol/L (3.5-5.1)
[2024-11-28 09:39] LABS: BASO % 0.2 % (0-2.0); EOS % 0.1 % (0-4.5); HEMOGLOBIN 9.1 GM/dL (10.7-15.3); LYMPH % 15.6 % (8-40); MCH 30.7 pg (25.7-33.7); MCHC 31.4 g/dl (32.0-36.0); MEAN CELL VOLUME 97.6 fl (80-96); MONO % 5.4 % (3.8-10.2); NEUT % 78.7 % (42.8-82.8); PLATELET COUNT 622 10^3/uL (134-434); RBC 2.97 M/mm3 (3.60-5.2); RDW 14.4 % (11.6-15.6); WHITE BLOOD COUNT 14.3 K/mm3 (4.0-10.0)
[2024-11-28] MEDS: IBUPROFEN 400 MG TABLET (FP) PO ONE (09:48)
[2024-11-28] MEDS: PIPERACILLIN/TAZOB 3.375 GM 3.375 GM in DEXTROSE 5%-WATER - 50 ML IVPB ONE (14:03)
[2024-11-28] MEDS: PIPERACILLIN/TAZOB 3.375 GM 3.375 GM in DEXTROSE 5%-WATER - 50 ML IVPB SCH (17:51)
[2024-11-29 09:01] LABS: ALBUMIN 2.4 g/dl (3.4-5.0); BILIRUBIN,TOTAL 0.3 mg/dl (0.2-1); CALCIUM 8.8 mg/dl (8.5-10.1); CREATININE 0.4 mg/dl (0.6-1.3); POTASSIUM 4.3 mmol/L (3.5-5.1); TOT PROT 5.2 g/dl (6.4-8.2)
[2024-11-29 13:02] LABS: HEMATOCRIT 29.4 % (32.4-45.2); HEMOGLOBIN 9.3 GM/dL (10.7-15.3); MCH 31.2 pg (25.7-33.7); MCHC 31.6 g/dl (32.0-36.0); MEAN CELL VOLUME 98.8 fl (80-96); MEAN PLT VOLUME 6.1 fl (7.5-11.1); PLATELET COUNT 611 10^3/uL (134-434); RBC 2.98 M/mm3 (3.60-5.2); RDW 14.6 % (11.6-15.6); WHITE BLOOD COUNT 15.4 K/mm3 (4.0-10.0)
[2024-11-29 14:25] LABS: ANISOCYTOSIS 0; HELMET CELLS 0; HOWELL-JOLLY BODIES 0; MACROCYTOSIS 0; OVALOCYTE 0; ROULEAU 0; SICKELED CELLS 0; TARGET CELLS 0; TEAR DROP CELLS 0; TOXIC GRANULATION 0
[2024-11-30 08:33] LABS: ALBUMIN 2.8 g/dl (3.4-5.0); BILIRUBIN,TOTAL 0.4 mg/dl (0.2-1); CREATININE 0.4 mg/dl (0.6-1.3); POTASSIUM 4.3 mmol/L (3.5-5.1); TOT PROT 5.8 g/dl (6.4-8.2)
[2024-11-30 09:39] LABS: HEMATOCRIT 33.6 % (32.4-45.2); HEMOGLOBIN 10.7 GM/dL (10.7-15.3); MCH 31.3 pg (25.7-33.7); MCHC 31.7 g/dl (32.0-36.0); MEAN CELL VOLUME 98.8 fl (80-96); MEAN PLT VOLUME 6.3 fl (7.5-11.1); PLATELET COUNT 665 10^3/uL (134-434); RDW 14.6 % (11.6-15.6); WHITE BLOOD COUNT 15.4 K/mm3 (4.0-10.0)
[2024-11-30 10:16] LABS: ANISOCYTOSIS 2+; MACROCYTOSIS 3+
[2024-11-30] MEDS: METOCLOPRAMIDE HCL INJECTION 10 MG/2 ML VIAL IVPB ONE (14:25)
[2024-11-30 14:31] VITALS: RESP 18
[2024-11-30] MEDS: ACETAMINOPHEN 325 MG TABLET (FP) PO PRN (21:44)
[2024-12-01] MEDS: CEFTRIAXONE 1 G/50 ML PREMIX 50 ML IVPB SCH (10:37)
[2024-12-01] MEDS: ALBUTEROL SO4 2.5/IPRATROPIUM 0.5 INH SOL 3 ML VIAL.NEB. NEB SCH (20:17)
[2024-12-01] MEDS: LORazepam 2 MG/ML SDV VIAL IVPUSH PRN (21:17)
[2024-12-02 10:39] LABS: ALBUMIN 2.7 g/dl (3.4-5.0); BILIRUBIN,TOTAL 0.3 mg/dl (0.2-1); CREATININE 0.3 mg/dl (0.6-1.3); TOT PROT 5.5 g/dl (6.4-8.2)
[2024-12-02 12:56] VITALS: BP 108/66; PULSE 88; TEMP 97.3
== END 2024-12-02 13:13 | disposition home or self-care (01) | DRG 193 ==
LOC: FER 15:19 → FM/S 18:00
PROVIDERS: ADMIT Internal Medicine
DX: J18.9 Pneumonia, unspecified organism (principal); E43 Unspecified severe protein-calorie malnutrition; E87.1 Hypo-osmolality and hyponatremia; N39.0 Urinary tract infection, site not specified; Z68.1 Body mass index [BMI] 19.9 or less, adult; R64 Cachexia; I10 Essential (primary) hypertension; G40.909 Epilepsy, unspecified, not intractable, without status epilepticus; F20.9 Schizophrenia, unspecified; I48.91 Unspecified atrial fibrillation; K83.8 Other specified diseases of biliary tract; F41.9 Anxiety disorder, unspecified; G47.00 Insomnia, unspecified; F39 Unspecified mood [affective] disorder; R09.02 Hypoxemia; R79.89 Other specified abnormal findings of blood chemistry; F43.10 Post-traumatic stress disorder, unspecified
CPT/HCPCS: 0241U-QW; 36415; 71045-TC-FY; 71275-TC; 74181-TC; 76705-TC; 80048; 80053; 81003; 81015; 82803; 83605; 83690; 83735; 84100; 84484; 85025; 85027; 85379; 85610; 85730; 86803; 87040; 87070; 87086; 87186; 87205; 87389; 87899; 93005; 94640; 99285-25; J0131; Q9967